=== PATIENT | male | born 1965 | race Caucasian/White ===

== ENCOUNTER 2017-12-05 14:22 | Observation (INO) | payer OTHER, SELFPAY ==
[2017-12-05] VITALS (16 sets, daily range): BP systolic 102–173; BP diastolic 59–94; PULSE 50–85; RESP 16–21; TEMP 36.4–36.6; O2SAT 95–100; BMI 32.5
--- NOTE | 2017-12-05 14:32 | DI.RAD.S_ITS ---
PROCEDURE: XR CHEST 1V INDICATIONS: chest pain TECHNIQUE: One view of the chest was acquired. COMPARISON: None. FINDINGS: Surgical changes and devices: None. Lungs and pleura: No pleural effusions or pneumothorax. Lungs are clear. Mediastinum: Mediastinal contours appear normal. Heart size is normal. Bones and chest wall: No suspicious bony lesions. Overlying soft tissues appear unremarkable. IMPRESSION: No acute cardiopulmonary disease. Dictated by: Juan C Zamudio M.D. on 12/05/2017 at 15:12 Approved by: Juan C Zamudio M.D. on 12/05/2017 at 15:13
[2017-12-05] MEDS: METOPROLOL 50 MG TABLET PO (14:35)
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
[2017-12-05 14:53] LABS: Add Manual Diff / Slide Review NO; Eosinophils Percent Auto 2.4 % (2-4); Hematocrit 40.9 % (41-53); Hemoglobin 14.3 g/dL (13.5-17.5); Lymphocytes Percent Auto 34.5 % (25-40); Mean Corpuscular HGB Conc 35.1 % (30-36); Mean Corpuscular Hemoglobin 31.8 PG (26-34); Mean Corpuscular Volume 90.7 fL (80-100); Monocytes Percent Auto 13.5 % (3-14); Neutrophils Absolute Auto 2800 /uL (3000-5900); Neutrophils Percent Auto 48.6 % (50-75); Platelet Count 277 X10^3/uL (150-400); Red Cell Distribution Width 12.8 % (11.6-14.8); White Blood Cell Count 5.8 X10^3/uL (4.5-11.0)
[2017-12-05] MEDS: ASPIRIN 81 MG TAB 324 MG PO (14:58)
[2017-12-05] MEDS: SODIUM CHLORIDE 0.9% 1,000 ML 150 ML IV ×2 (14:59→21:39)
[2017-12-05] MEDS: NITROGLYCERIN 0.4 MG SL TAB SL ×2 (14:59→15:22)
[2017-12-05 15:14] LABS: Alanine Aminotransferase 50 IU/L (21-72); Albumin 4.6 g/dL (3.5-5.0); Albumin Globulin Ratio 1.5 (1.0-2.8); Alkaline Phosphatase 68 U/L (38-126); Aspartate Aminotransferase 37 IU/L (17-59); Bilirubin Total 0.6 mg/dL (0.2-1.3); Blood Urea Nitrogen 18 mg/dL (9-20); Calcium 9.5 mg/dL (8.4-10.2); Carbon Dioxide 27 mmol/L (22-32); Chloride 102 mmol/L (98-107); Creatine Kinase 77 U/L (55-170); Estimated Glomerular Filt Rate > 60.0 mL/min (>60); Globulin 3.1 g/dL (1.7-4.1); Glucose 99 mg/dL (70-100); HEMOLYSIS < 15 (0-50); Lipase 87 U/L (23-300); Potassium 4.5 mmol/L (3.4-5.1); Sodium 140 mmol/L (137-145); Total Protein 7.7 g/dL (6.3-8.2)
[2017-12-05 15:26] LABS: Troponin I < 0.012 ng/mL (0.01-0.034)
--- NOTE | 2017-12-05 19:10 | PC.NURSE ---
Admit note Pt admitted from ED this at afternoon for chest pain at 1640. Brought by bed. Pt able to ambulate self to bed. AOx3. 99% on RA. LS clear. Pt reports having a sore throat last week and thinking his chest pressure related to that. No chest pain/ pressure reported upon arrival on unit. Pt reports hx of reflux. Oriented to room. Call light in hand.
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
[2017-12-05] MEDS: LISINOPRIL 10 MG TABLET PO (20:32)
[2017-12-05] MEDS: PANTOPRAZOLE 40 MG TABLET PO (20:32)
[2017-12-05] MEDS: NITROGLYCERIN OINT 1 INCH/GM OINT...G. 0.75 INCH TOP (20:36)
[2017-12-05 22:34] LABS: Creatine Kinase 63 U/L (55-170)
[2017-12-05 22:50] LABS: Troponin I < 0.012 ng/mL (0.01-0.034)
[2017-12-06] VITALS (7 sets, daily range): BP systolic 96–153; BP diastolic 49–75; PULSE 44–67; RESP 14–18; TEMP 36.2–36.8; O2SAT 94–99
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
[2017-12-06] MEDS: SODIUM CHLORIDE 0.9% 1,000 ML 150 ML IV ×2 (04:21→11:18)
[2017-12-06] MEDS: PANTOPRAZOLE 40 MG TABLET PO (06:16)
[2017-12-06 06:24] LABS: Creatine Kinase 58 U/L (55-170)
[2017-12-06 06:38] LABS: Troponin I < 0.012 ng/mL (0.01-0.034)
--- NOTE | 2017-12-06 09:05 | PC.NURSE ---
Addendum entered by Yasmine Fry R.N. 12/06/17 15:57: Back from stress test approx 1330. Denied headache at that time, but did report that he had been lightheaded during the stress test. Re-connected to IV fluids and tele. Agreed to call for SBA OOB. Light in reach. Original Note: Addendum entered by Yasmine Fry R.N. 12/06/17 13:23: Late entry: Off floor for stress test approx. 1215, ICU notified of the same. Original Note: Addendum entered by Yasmine Fry R.N. 12/06/17 09:10: ... Lungs CTA, SpO2 on RA 96%. HRR to auscultation. His main complaint is of a headache this morning, he does not have meds ordered. Will offer ice pack and request meds from MD. Stress test scheduled for approx 1400 today. We are not providing any caffeine, and he will be NPO after 1100. Patient is aware and agreeable. Able to make needs known and calls appropriately. Light in reach. Indep w/ bed mobility. Original Note: Shift summary: Awake and alert, oriented X3. Reports ache in middle of chest, rates 2/10 and states maybe has improved slightly since he took his Protonix earlier this morning. Denies sharp chest pain, chest pressure, palpitations or shortness of breath. HRR, largely in the 50's-60's per tele. Patient did report slight lightheadedness with deep breathing. This specifications writer insisted that he call for SBA next time into bathroom.
[2017-12-06] MEDS: ASPIRIN 325 MG TABLET PO (09:14)
--- NOTE | 2017-12-06 12:55 | PM.TREADMILL ---
Cardiac Stress Test Report Referral & Results Date Patient Seen: 12/06/17 Time Patient Seen: 12:55 Requesting provider: Jeff Steward Indication: Chest pain Rest ECG: Unremarkable Procedure Note: Today following both written and verbal informed consent the patient was exercised according to a standard Prudencio protocol patient went for a total of 10 min 22 sec achieving a maximum heart rate of 152 maximum systolic blood pressure of 175. This is approximately 0.8 METS. Exercise was terminated at this point because of targets having been met. Patient was also given Cardiolite through a previously started Hep-Lock IV by the nuclear powerplant mechanic helper approximately 1 minute prior to the cessation of exercise. With exercise there are no ST-T segment changes Normal heart rate and blood pressure response to exercise Functional aerobic impairment rated-10% on the sedentary scale or 0 on the active scale No dysrhythmias identified Impression: No ischemic changes Normal exercise capacity Perfusion imaging will be reported separately Please note: Actual ECG tracings can be found in the PACS system.
--- NOTE | 2017-12-06 15:35 | CM.DANOTE ---
Discharge Planning/Care Management DCP: assessment: case received, EMR reviewed. Met with pt this morning at 0830. Introduced self and role. Pt is a 52 year old male who admitted last evening to care of hospitalist team. Payer: confirmed now by [employer] as [employer]. PCP: not currently. Pt notes he plans to establish with one soon. Looks like I will be needing one. At time of interview pt was pending a stress test today and with plan for d/c if all was ok and prn outpt followup. DCP team to check in again tomorrow if pt is still here. No d/c needs are identified at this time. Pt seems very capable of following up on need for a PCP. CM Discharge Assessment Start: 12/06/17 15:32 Freq: Status: Active Protocol: Document 12/06/17 15:33 ITV (Rec: 12/06/17 15:35 ITV [id number]) Discharge Planning Assessment Advance Directives? No History Provided By Patient Medical Record Prior Living Arrangements House Independent with ADL's Yes Is patient alert and oriented? Yes Barriers to Discharge No Comment if noted: does not have a PCP: plans to establish with one Whiteboard Updated in Patient Room with Yes name and ext. # of Event Decorator Review Status In Process Next Review Type Continued Stay Review
--- NOTE | 2017-12-06 16:52 | PM.DS.1 ---
History of Present Illness Chief complaint: high bp Discharge Providers Date of admission: 12/05/17 17:34 Discharge provider: Bill Hanson MD Summary Discharge Diagnosis: 1. Atypical chest pain 2. Hypertension 3. Hyperlipidemia 4. Gastroesophageal reflux disease Hospital Course: Patient admitted due to persistent chest discomfort. He tells me the chest discomfort has been continuous for 2 days prior to admission. He has not had any recurrent pain in hospital. He ruled out for acute WI. He had stress Mibi and went over 10 min without symptoms or ST changes. His myocardial perfusion imaging does show infra apical/basal inferior wall abnormality which did not improve with prone imaging. Unclear if this is artifact but he will need to return tomorrow a.m. for his rest imaging. He is low risk to discharge due to absence of recurrent pain, normal EKG is, and no pain or ST changes on his treadmill. He has hyperlipidemia with LDL in the 150s and started on atorvastatin 20 mg daily based on risk factors. Continued on his lisinopril and other medications. He is instructed to follow up with his outpatient provider in 1 week to review stress test results and any further management. Time Spent with Patient Greater than 30 minutes Exam Vital Signs (past 8 hours): - 12/06/17 12:59 12/06/17 15:35 Temperature 98.2 F 98.3 F Pulse Rate 47 L 57 L Respiratory Rate 18 14 Blood Pressure 122/66 H 130/75 H Pulse Oximetry 96 99 Oxygen Delivery Method Room Air Objective Labs Result Diagrams: 12/05/17 14:40 12/05/17 14:40 Labs: Laboratory Results - last 24 hr 12/05/17 12/06/17 22:16 05:46 Total Creatine Kinase 63 58 Troponin I < 0.012 < 0.012 Discharge Plan Discharge Plan Patient Disposition: Home, Self-Care Discharge comment: Return tomorrow for resting portion of stress test. Follow up 1 week with PCP in [facility] Discharge Data Attending Provider: Jeff Steward Admit Date/Time: 12/05/17 17:34
--- NOTE | 2017-12-06 18:21 | PC.NURSE ---
discharge note Pt AOx3. No complaints of pain, chest pain, dizziness. Able to ambulate independently. Provided DC instructions. Prescription for avorstatin sent to [facility]. Pt aware. IV discontinued. Wheelchaired out by HELIOTHERAPIST. Pt driving self home.
--- NOTE | 2017-12-07 16:00 | DI.NM.S_ITS ---
DATE OF SERVICE: 12/06/2017 PROCEDURE: Exercise treadmill stress and rest myocardial perfusion imaging with gating to assess ejection fraction and regional wall motion. INDICATIONS: The patient is a male recently admitted with atypical chest discomfort. EXERCISE TREADMILL TESTING: The patient was able to exercise for a total of 10 minutes 22 seconds on a standard Prudencio protocol suggesting average exercise capacity with an YVAN of 0% on the active scale. He had a normal heart rate and blood pressure response to exercise, achieving a maximum heart rate of 152 bpm (90% of his predicted maximum). He had no chest discomfort and his ECG was normal at rest and remained normal without any significant ST-segment shifts or arrhythmias. At 9 minutes 15 seconds of exercise, at a heart rate of 140 bpm, 20.6 mCi of technetium 99 Myoview was injected, and the patient was imaged 15 minutes later using a gated SPECT acquisition protocol. The patient returned the following day and was reinjected with an additional 21.3 mCi of technetium 99 Myoview and was imaged using a gated SPECT protocol. FINDINGS: 1. Raw Data: There is fair myocardial tracer uptake was some evidence for soft tissue attenuation on both the stress and the rest images. Lung/heart ratio is normal at 0.32 with a normal TID ratio of 0.90. 2. Quantitative Gated SPECT: Post stress ejection fraction is estimated to be 65% without any focal wall motion abnormality and specifically, the anterior wall and inferior wall appear to have brisk contractility. Resting ejection fraction is estimated at 52%, although visually appears to be somewhat better than this. Resting end-diastolic volume borderline increased at 154 mL. 3. Myocardial Perfusion Imaging: Post stress supine images show a very mild defect in the proximal portion of the inferior wall in a pattern consistent with diaphragmatic attenuation, supported by its resolution on the prone images. In addition, there is a fairly small focal area of mildly reduced tracer activity in the distal anteroapex, suggestive of chest wall attenuation, also supported by its near-complete resolution on the prone images. The resting images show a identical perfusion pattern to that of the post stress images without any clear areas of significant improvement. CONCLUSIONS: 1. Probable normal myocardial perfusion study. 2. Mild fixed proximal inferior and small fixed distal anteroapical defect, both of which essentially resolved on prone imaging suggestive of attenuation artifact. Previous nontransmural infarction cannot be entirely excluded, but given the resolution on the prone images and the absence of any regional wall motion abnormality, this is unlikely. There is no evidence of any significant myocardial ischemia. 3. Normal left ventricular systolic function without any focal wall motion abnormality, although with mildly increased left ventricular volumes. 4. Average exercise capacity without angina or ECG evidence of ischemia. Victorino Garza - TASIA/kailee/ab doc#: [id number]/job#: [id number] dd: 12/07/2017 12:57:00 dt: 12/07/2017 15:42:00 DICTATING MD/COPIES TO: Yanick Segura MD; Melissa Roberts MD; JANNETTE Wiley COPIES MNE: COLLETTE MOISE
== END 2017-12-06 18:05 | disposition home or self-care (01) ==
LOC: ED 17:11 → AC 17:35
PROVIDERS: Admitting Provider Internal Medicine; Emergency Provider Emergency Medicine; Visit Provider Internal Medicine
DX: R07.9 Chest pain, unspecified (principal); I10 Essential (primary) hypertension
CPT/HCPCS: 36415; 71045; 78452; 80053; 82550; 82553; 83690; 84484; 85025; 87086; 93005; 93010; 93016; 93017; 93018; 99283; 99285; G0378; A9502